=== PATIENT | male | born 2000 | race African-American/Black ===

== ENCOUNTER 2019-11-23 20:54 | Emergency (ER) | payer MEDICAID ==
[~2019-11-23] VITALS: Ht 188 cm; Wt 79.4 kg
[2019-11-23 21:16] VITALS: BP 131/76
--- NOTE | 2019-11-23 21:16 | NUR ---
ED Nurse Note: Walk-in patient with complaints of finger injury discovered today around 1100, unknown etiology.
--- NOTE | 2019-11-23 21:45 | NUR ---
ED Nurse Note: Xray techs at bedside.
--- NOTE | 2019-11-23 21:46 | Emergency Room Report ---
History of Present Illness General Chief Complaint: Upper Extremity Injury Source: Patient Present Illness HPI 19-year-old male here after striking his right middle finger against a wall earlier today. Patient is having pain at the distal tip of his right middle finger. No break in the skin. No focal numbness or weakness. No other injuries. Allergies: Coded Allergies: No Known Allergies (Unverified , 11/23/19) COVID-19 Screening Contact w/high risk pt: No Experienced COVID-19 symptoms?: No COVID-19 Testing performed TAX MAP TECHNICIAN: No Nursing Documentation-[facility] Past Medical History: No Stated History Physical Exam Vital Signs Date Time Temp Pulse Resp B/P (MAP) Pulse Ox O2 Delivery O2 Flow Rate FiO2 11/23/19 21:09 98.2 68 131/76 (94) 99 Room Air 11/23/19 21:16 16 Sp02 EP Interpretation: reviewed, normal General Appearance: no apparent distress, alert, non-toxic Head: normocephalic, atraumatic Eyes: bilateral eye normal inspection, bilateral eye PERRL ENT: hearing grossly normal, normal pharynx, no angioedema, normal voice Neck: full range of motion, supple/symm/no masses Cardiovascular #2: 2+ carotid (R), 2+ carotid (L), 2+ radial (R), 2+ radial (L), 2+ dorsalis pedis (R), 2+ dorsalis pedis (L) Musculoskeletal: back normal, normal range of motion, calf tenderness, gait/station normal, tender, other - Mild tenderness and ecchymosis at the distal tip of the right middle finger. No subungual hematoma. Neurovascular intact. No obvious bony abnormalities. No breaks in skin Neurologic: alert, motor strength/tone normal, sensory intact, responsive, sp eech normal Psychiatric: judgement/insight normal, memory normal, mood/affect normal, no suicidal/homicidal ideation Reflexes: 3+ bicep (R), 3+ bicep (L), 3+ tricep (R), 3+ tricep (L), 3+ knee (R), 3+ knee (L) Lymphatic: no adenopathy Medical Decision Making Diagnostic Impression: Primary Impression: Contusion of right middle finger Additional Impression: Fracture of phalanx of right middle finger ER Course X-ray right hand: Indication right middle finger distal pain. Possible very small fracture line at the proximal aspect of the right middle finger distal phalanx on the lateral side Splint note: Finger splint was placed on the right middle phalanx. Patient was neurovascular intact before and after the splint was placed 19-year-old male here after striking his right middle finger against a wall earlier today. X-ray showed possible fracture of the distal phalanx however the patient had normal range of motion and no pain on palpation of where the fracture line appears on x-ray. The patient was placed in a finger splint as described above. He was given information to follow-up with a orthopedic surgeon and told to come back to the emergency department if he has any focal numbness or worsening swelling. He expressed understanding was discharged. Last Vital Signs Date Time Temp Pulse Resp B/P (MAP) Pulse Ox O2 Delivery O2 Flow Rate FiO2 11/23/19 21:16 98.2 79 16 131/76 99 Room Air Disposition: HOME, SELF-CARE Scripts Ibuprofen* (MOTRIN*) 600 Mg Tablet 600 MG ORAL Q6H PRN for FOR PAIN, #20 TAB 0 Refills Prov: Chris Grant M.D. 11/23/19 Chris Grant M.D. Nov 23, 2019 21:46
[2019-11-23] MEDS ORDERED: IBUPROFEN600 M1 ORAL (21:57)
[2019-11-23 22:00] VITALS: BP 131/76
--- NOTE | 2019-11-23 22:00 | NUR ---
ER DISCHARGE NOTE: Patient is cleared to be discharged per ERMD. Discharged by alternate nurse.
--- NOTE | 2019-11-24 11:21 | Diagnostic Imaging Report ---
Indication: Right middle finger pain Technique: 3 views right hand Comparison: none Findings: There is a nondisplaced fracture of the lateral corner of the base of the third distal phalanx. No other acute fractures. Impression: Positive for third distal phalangeal fracture This agrees with the preliminary interpretation reported by the emergency room physician in the electronic medical record
== END 2019-11-23 22:00 | disposition home or self-care (01) ==
LOC: EMR 21:50
DX: S60.031A Contusion of right middle finger without damage to nail, initial encounter (principal); S62.662A Nondisplaced fracture of distal phalanx of right middle finger, initial encounter for closed fracture; W22.8XXA Striking against or struck by other objects, initial encounter; Y92.9 Unspecified place or not applicable
CPT/HCPCS: 29130; 73130; Z7502; 99283